=== PATIENT | male | born 1970 | race Caucasian/White ===

== ENCOUNTER 2017-03-08 10:02 | Emergency (ER) | payer BC ==
[~2017-03-08] VITALS: Ht 182.9 cm; Wt 124.1 kg
[~2017-03-08 10:02] MED LIST: ESCITALOPRAM OX10 MG PO; FIORICET WI1 CAPSULE PO; HYDROCHLOROTHIA25 MG PO; INDOCIN50 MG PO; NAPROXEN500 MG PO; PANTOPRAZOLE SO40 MG PO; PERCOCET 5/31 TABLET PO; VITAMIN D50000 UNI4 PO
[2017-03-08 10:48] LABS: EOSINOPHIL (%) 2.3 % (0-5); EOSINOPHIL COUNT 0.2 K/uL (0-0.3); HEMATOCRIT 40.5 % (38.0-50.0); IMMATURE GRANULOCYTE COUNT 0.1 K/uL; INSTRUMENT ABS NEUTROPHIL CT 4.7 K/uL; LYMPHOCYTE COUNT 1.5 K/uL (1.0-2.8); MCH 27.7 PG (29.0-34.0); MCHC 33.8 G/DL (30.0-36.0); MCV 81.8 FL (86-99); MONOCYTE (%) 5.6 % (3-12); MONOCYTE COUNT 0.4 K/uL (0-0.8); NEUTROPHIL (%) 68.6 % (45-76); NEUTROPHIL COUNT 4.7 K/uL (1.8-6.4); PLATELET COUNT 158 K/uL (156-360); RBC DIS.WIDTH-CV 12.5 % (11.8-14.6); RBC DIS.WIDTH-SD 37.2 % (39-53); RED BLOOD COUNT 4.95 M/uL (4.00-5.50); WHITE BLOOD COUNT 6.9 K/uL (4.1-10.2)
[2017-03-08 11:18] LABS: CHLORIDE 103 mEq/L (99-109); POTASSIUM 3.7 mEq/L (3.7-5.4); SODIUM 138 mEq/L (136-147)
[2017-03-08 11:21] LABS: ANION GAP 13 MEQ/L (2-14)
[2017-03-08 11:22] LABS: TOTAL BILIRUBIN 0.6 mg/dL (0.0-1.0)
[2017-03-08 11:23] LABS: ALKALINE PHOSPHATASE 61 IU/L (3-129)
[2017-03-08 11:24] LABS: GFR ESTIMATE (CALCULATED) > 59 mL/min/
[2017-03-08 11:25] LABS: UREA NITROGEN (BUN) 21 mg/dL (9-23)
[2017-03-08 11:40] LABS: GLUCOSE 138 mg/dL (70-99)
[2017-03-08 12:39] LABS: ADD MIUA? NO; BILIRUBIN NEGATIVE; BLOOD NEGATIVE; COLOR YELLOW ((YELLOW)); GLUCOSE (STRIP) NEGATIVE; KETONES NEGATIVE; LEUKOCYTES NEGATIVE; NITRITE NEGATIVE; PROTEIN (STRIP) NEGATIVE; SPECIFIC GRAVITY 1.011 (1.000-1.030); UCUL ADDED? NO; UROBILINOGEN 0.2 MG/DL (0.2-1.0)
[2017-03-08 12:51] LABS: AMPHETAMINE NEGATIVE (500 ng/mL); BARBITURATES NEGATIVE (200 ng/mL); BENZODIAZEPINES NEGATIVE (150 ng/mL); COCAINE NEGATIVE (150 ng/mL); INTERNAL CONTROLS VALID? YES; METHADONE NEGATIVE (200 ng/mL); METHAMPHETAMINE NEGATIVE (500 ng/mL); OPIATES (MORPHINE) NEGATIVE (100 ng/mL); OXYCODONE NEGATIVE (100 ng/mL); PHENCYCLIDINE NEGATIVE (25 ng/mL); PROPOXYPHENE NEGATIVE (300 ng/mL); THC CANNABINOIDS NEGATIVE (50 ng/mL); TRICYCLIC ANTIDEPRESSANTS NEGATIVE (300 ng/mL)
[2017-03-08 16:23] VITALS: BP 147/97
== END 2017-03-08 16:24 | disposition home or self-care (01) ==
LOC: EME 10:02
PROVIDERS: Emergency Medicine
DX: F41.9 Anxiety disorder, unspecified (principal); R51 Headache; R53.1 Weakness; I10 Essential (primary) hypertension; E11.9 Type 2 diabetes mellitus without complications; Z88.0 Allergy status to penicillin
CPT/HCPCS: 70450; 80053; 81003; 85025; 93005; 99281; 99284; J1885; J2060; J2405